=== PATIENT | male | born 2000 | race Caucasian/White ===

== ENCOUNTER 2023-03-12 09:00 | Outpatient (CLI) | payer OTHER ==
[2023-03-12 13:12] LABS: INFLUENZA A- RESP PCR PANEL NOT DETECTED; INFLUENZA B - RESP PCR PANEL NOT DETECTED; RSV- RESP PCR PANEL DETECTED; SARS-CoV-2 -RESP PCR PANEL NOT DETECTED
== END 2023-03-12 09:15 | disposition home or self-care (01) ==
LOC: LAB.N 09:00
PROVIDERS: ATTEND Family Medicine
DX: J06.9 Acute upper respiratory infection, unspecified (principal)
CPT/HCPCS: 87637